=== PATIENT | female | born 1995 | race Two or more races ===

== ENCOUNTER 2016-11-23 13:02 | Emergency (ER) | payer OTHER ==
[~2016-11-23] VITALS: Ht 160 cm; Wt 57.6 kg
--- NOTE | 2016-11-23 14:42 | NUR ---
PATIENT IN ROOM 5B WAITING TO BE SEEN BY PHYSICIAN. URINE SPECIMEN OBTAINED
--- NOTE | 2016-11-23 16:40 | NUR ---
DOCTOR IN ROOM TO EXPLAIN RESULTS AND WILL BE DISCHARGED.
--- NOTE | 2016-11-23 16:49 | NUR ---
DISCHARGE PAPER WORK GIVEN TO PATIENT UNDERSTOOD. AND A COPY OF PATIENT LAB RESULT GIVEN.
== END 2016-11-23 16:51 | disposition home or self-care (01) ==
LOC: ER 13:02
DX: Z32.01 Encounter for pregnancy test, result positive (principal); Z3A.01 Less than 8 weeks gestation of pregnancy
CPT/HCPCS: 36415; 84702; 99283; A4663